=== PATIENT | male | born 1945 | race Hispanic/Latino ===

== ENCOUNTER → 2017-09-12 | Outpatient (CLI) | payer OTHER ==
[~2017-09-12] MED LIST: ASPI-1197 PO; COLE1TAB2 PO; ESOM40CA PO; GABA-529 PO; LEVE250T2 PO; METO200T49 PO; MULT-1203 PO; PIOG45TA17 PO; SITA50TA PO
== END | disposition home or self-care (01) ==
LOC: RAH 09:47
PROVIDERS: ATTEND Surgery
DX: K86.1 Other chronic pancreatitis (principal)
CPT/HCPCS: 76705

== ENCOUNTER 2018-08-06 06:28 | Day surgery (SDC) | payer OTHER ==
[2018-08-04 12:55] LABS: BASOPHILS % (AUTO) 0.4 % (0.0-5.0); EOSINOPHILS % (AUTO) 3.6 % (0.0-8.0); HEMATOCRIT 38.7 % (42-54); LYMPHOCYTES % (AUTO) 36.3 % (21.0-51.0); MEAN CORPUSCULAR HEMOGLOBIN 30.8 pg (27.0-33.0); MEAN CORPUSCULAR HGB CONC 33.9 g/dL (32.0-36.0); MEAN CORPUSCULAR VOLUME 90.9 fL (79-99); MONOCYTES % (AUTO) 6.8 % (3.0-13.0); NEUTROPHILS % (AUTO) 52.9 % (40.0-77.0); PLATELET COUNT (AUTO) 190 K/uL (130-400); RED BLOOD CELL COUNT(AUTO) 4.26 MIL/uL (4.50-6.20); RED CELL DISTRIBUTION WIDTH 13.8 % (11.0-15.5); WHITE BLOOD COUNT (AUTO) 6.1 K/uL (4.8-10.8)
[2018-08-04 13:02] VITALS: BP 169/82
[2018-08-04 13:12] LABS: INR 1.02 (0.85-1.15); PARTIAL THROMBOPLASTIN TIME 29.9 SEC (26.3-35.5); PROTHROMBIN TIME 10.7 SEC (9.6-11.6)
[~2018-08-06] VITALS: Ht 168.9 cm; Wt 77.6 kg
[~2018-08-06 06:28] MED LIST changes: -ASPI-1197 PO; +DILT300C53 PO; +HYDR25TA PO; -LEVE250T2 PO; +LOSA100T20 PO; -PIOG45TA17 PO; +PIOG45TA64 PO
[2018-08-06 06:44] VITALS: BP 151/71
[2018-08-06] MEDS ORDERED: SODIUM CHLORIDE 0.9% 1000ML 1,000 ML IV ONE (06:59)
[2018-08-06] MEDS ORDERED: LIDOCAINE HCL 1% MDV 50ML VIAL ONE (08:05)
[2018-08-06] MEDS ORDERED: LIDOCAINE 1%-EPI 1:100,000 20 ML VIAL IJ ONE (08:06)
[2018-08-06] MEDS ORDERED: FENTANYL CITRATE PF 50 MCG/1 ML 2ML VIAL ONE (08:22)
[2018-08-06] MEDS ORDERED: MIDAZOLAM HCL 1 MG/ML 2ML VIAL ONE (08:22)
[2018-08-06] MEDS ORDERED: OCTYL 2-CYANOACRYLATE 1 EACH TP ONE ×3 (09:00→09:12)
[2018-08-06 09:40] VITALS: BP 143/74
[2018-08-06 09:55] VITALS: BP 157/79
[2018-08-06 10:10] VITALS: BP 162/72
[2018-08-06 10:25] VITALS: BP 160/70
[2018-08-06 10:40] VITALS: BP 135/70
== END 2018-08-06 11:00 | disposition home or self-care (01) ==
LOC: DAH 06:28
PROVIDERS: ATTEND Internal Medicine Medical Oncology
DX: Z45.2 Encounter for adjustment and management of vascular access device (principal); R10.9 Unspecified abdominal pain; I25.10 Atherosclerotic heart disease of native coronary artery without angina pectoris; I10 Essential (primary) hypertension; K21.9 Gastro-esophageal reflux disease without esophagitis; E55.9 Vitamin D deficiency, unspecified; E11.9 Type 2 diabetes mellitus without complications; F41.9 Anxiety disorder, unspecified; F32.9 Major depressive disorder, single episode, unspecified; Z98.890 Other specified postprocedural states; Z87.891 Personal history of nicotine dependence; Z80.0 Family history of malignant neoplasm of digestive organs; Z79.899 Other long term (current) drug therapy; C20 Malignant neoplasm of rectum
CPT/HCPCS: 36415; 36561; 77001; 82948; 85025; 85610; 85730; C1788; C1894; J1644 ×2; J2250; J3010; J3490 ×2; J7030; 99156; 99157

== ENCOUNTER → 2018-12-03 | Outpatient (CLI) | payer OTHER ==
[~2018-12-03] MED LIST changes: -LOSA100T20 PO; +LOSA100T58 PO
== END | disposition home or self-care (01) ==
LOC: RAH 10:33
PROVIDERS: ATTEND Internal Medicine Gastroenterology
DX: R14.0 Abdominal distension (gaseous) (principal); R10.9 Unspecified abdominal pain; R11.2 Nausea with vomiting, unspecified
CPT/HCPCS: 78264; A9541

== ENCOUNTER 2020-01-19 06:19 | Day surgery (SDC) | payer OTHER ==
[~2020-01-19] VITALS: Ht 167.6 cm; Wt 78.9 kg
[~2020-01-19 06:19] MED LIST changes: +SODIUM CHLORIDE 0.9% 1000ML 1,000 ML IV ONE
[2020-01-19] MEDS ORDERED: DICY20TA11 PO (07:18)
[2020-01-19] MEDS ORDERED: LIPA1CAP18 PO (07:18)
[2020-01-19] MEDS ORDERED: DEXL60CA3 PO (07:18)
[2020-01-19] MEDS ORDERED: FAMO40TA7 PO (07:18)
[2020-01-19] MEDS ORDERED: ICOS1CAP PO (07:18)
[2020-01-19] MEDS ORDERED: TAMS-1 PO (07:18)
[2020-01-19] MEDS ORDERED: ASPI-556 PO ×2 (07:18)
[2020-01-19] MEDS ORDERED: SUCR1ORA15 PO (07:18)
[2020-01-19] MEDS ORDERED: AMIT25TA9 PO (07:18)
[2020-01-19 07:20] VITALS: BP 135/62
[2020-01-19] MEDS ORDERED: ONDANSETRON HCL 4 MG/2 ML VIAL ONE (07:24)
[2020-01-19] MEDS ORDERED: MIDAZOLAM HCL 1 MG/ML 2ML VIAL ONE (08:03)
[2020-01-19] MEDS ORDERED: LIDOCAINE HCL 2% 20ML ONE (08:03)
[2020-01-19] MEDS ORDERED: PROPOFOL 10 MG/ML 20ML VIAL IV ONE (08:03)
[2020-01-19 08:21] VITALS: BP 149/92
[2020-01-19 08:25] VITALS: BP 149/78
[2020-01-19 08:30] VITALS: BP 133/63
[2020-01-19 08:35] VITALS: BP 144/75
[2020-01-19 08:40] VITALS: BP 139/78
== END 2020-01-19 08:50 | disposition home or self-care (01) ==
LOC: ENDO 06:19 → DAH 06:19 → ENDO 08:50
PROVIDERS: ATTEND Internal Medicine Gastroenterology
DX: R93.3 Abnormal findings on diagnostic imaging of other parts of digestive tract (principal); R93.5 Abnormal findings on diagnostic imaging of other abdominal regions, including retroperitoneum; Z11.59 Encounter for screening for other viral diseases; K21.9 Gastro-esophageal reflux disease without esophagitis; I25.10 Atherosclerotic heart disease of native coronary artery without angina pectoris; I12.9 Hypertensive chronic kidney disease with stage 1 through stage 4 chronic kidney disease, or unspecified chronic kidney disease; E11.22 Type 2 diabetes mellitus with diabetic chronic kidney disease; N18.9 Chronic kidney disease, unspecified; Z85.07 Personal history of malignant neoplasm of pancreas; Z86.010 Personal history of colon polyps
CPT/HCPCS: 36415; 43237; 82948 ×2; A4215; A4221; A4222; A4223; A4606; A4620; A4657; A4663; J2250; J2405; J2704; J3490; J7030; U0003; 43200

== ENCOUNTER 2020-01-20 06:15 | Day surgery (SDC) | payer OTHER ==
[2020-01-20] VITALS (13 sets, daily range): BP systolic 114–140; BP diastolic 53–89
[~2020-01-20] VITALS: Ht 167.6 cm; Wt 78.9 kg
[~2020-01-20 06:15] MED LIST changes: +AMIT25TA9 PO; +ASPI-556 PO; +DEXL60CA3 PO; +DICY20TA11 PO; +FAMO40TA7 PO; +ICOS1CAP PO; +LIPA1CAP18 PO; -SODIUM CHLORIDE 0.9% 1000ML 1,000 ML IV ONE; +SUCR1ORA15 PO; +TAMS-1 PO
[2020-01-20] MEDS ORDERED: SODIUM CHLORIDE 0.9% 1000ML 1,000 ML IV ONE (06:18)
[2020-01-20] MEDS ORDERED: PROPOFOL 10 MG/ML 20ML VIAL IV ONE (08:09)
--- NOTE | 2020-01-20 08:55 | NUR ---
REPORT PT C/O OF CHEST PAIN. CALLED ALEXA SCOTT RN AND RECEIVED NEW ORDERS FROM MAGGY DELGADO CRNA FOR STAT EKG
--- NOTE | 2020-01-20 09:00 | NUR ---
REPORT PT REPORTING PAIN IS TO ABDOMEN SO RECEIVED NEW ORDERS FOR SIMETHICONE 80MG X1 FOR GAS PAIN. WILL CONTINUE TO MONITOR PT.
--- NOTE | 2020-01-20 09:01 | NUR ---
EKG EKG PERFORMED NORMAL SINUS NOTED AND REPORTED TO AD WINTER.
--- NOTE | 2020-01-20 09:10 | NUR ---
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 PT V/S STABLE
[2020-01-20] MEDS ORDERED: SIMETHICONE 40 MG/0.6 ML ML ONE (09:12)
[2020-01-20] MEDS ORDERED: SIMETHICONE 40 MG/0.6 ML ML PO SCH (09:15)
[2020-01-20] MEDS ORDERED: SIMETHICONE 80 MG TAB.CHEW PO SCH (09:15)
--- NOTE | 2020-01-20 09:15 | NUR ---
SIMETHICONE PT GIVEN SIMETHICONE 80MG DROPS VIA PO X ONE PER ORDERS FOR DISCOMFORT
== END 2020-01-20 09:40 | disposition home or self-care (01) ==
LOC: DAH 06:15 → ENDO 06:15
PROVIDERS: ATTEND Internal Medicine
DX: R10.10 Upper abdominal pain, unspecified (principal); K31.89 Other diseases of stomach and duodenum; K86.89 Other specified diseases of pancreas; I12.9 Hypertensive chronic kidney disease with stage 1 through stage 4 chronic kidney disease, or unspecified chronic kidney disease; E11.22 Type 2 diabetes mellitus with diabetic chronic kidney disease; N18.9 Chronic kidney disease, unspecified; E78.5 Hyperlipidemia, unspecified; K21.9 Gastro-esophageal reflux disease without esophagitis; Z79.84 Long term (current) use of oral hypoglycemic drugs; Z79.899 Other long term (current) drug therapy; Z98.890 Other specified postprocedural states; Z85.07 Personal history of malignant neoplasm of pancreas; Z82.49 Family history of ischemic heart disease and other diseases of the circulatory system
CPT/HCPCS: 43259; 82948; 93005; A4215 ×2; A4221; A4222; A4223; A4606; A4620; A4663; J2704; J7030; 43200; 43237